=== PATIENT | female | born 1980 | race Caucasian/White ===

== ENCOUNTER 2017-11-23 12:27 | Emergency (ER) | payer OTHER ==
[2017-11-23 13:13] VITALS: BP 139/91
--- NOTE | 2017-11-23 13:29 | UC ---
Eye Complaint HPI - HPI Summary HPI Summary: Patient to urgent care today with chief complaint of redness and purulent drainage from left eye began today. Patient does not wear contact lenses patient does not have any visual disturbances patient does not have any photophobia - History of Current Complaint Chief Complaint: UCEye Stated Complaint: EYE COMPLAINT Time Seen by Provider: 11/23/17 13:10 Hx Obtained From: Patient Hx Last Menstrual Period: HAS AN IUD, NO REG PERIOD ?: No Onset/Duration: Sudden Onset, Lasting Days - 1 Timing: Constant Pain Intensity: 4 Pain Scale Used: 0-10 Numeric Location of Injury: Conjunctiva Aggravating Factor(s): Nothing Alleviating Factor(s): Nothing Associated Signs And Symptoms: Positive: Drainage (Purulent) - Allergies/Home Medications Allergies/Adverse Reactions: Allergies Allergy/AdvReac Type Severity Reaction Status Date / Time No Known Allergies Allergy Verified 11/23/17 13:14 PMH/Surg Hx/FS Hx/Imm Hx Previously Healthy: Yes - Surgical History Surgical History: None - Family History Known Family History: Positive: None - Social History Occupation: Employed Full-time Lives: With Family Alcohol Use: Occasionally Substance Use Type: None Smoking Status (MU): Heavy Every Day Tobacco Smoker Type: Cigarettes Amount Used/How Often: 1 PPD Household Exposure Type: Cigarettes Review of Systems Constitutional: Negative Skin: Negative Eyes: Drainage - left, Eye Redness - left ENT: Negative Respiratory: Negative Cardiovascular: Negative Gastrointestinal: Negative Genitourinary: Negative Motor: Negative Neurovascular: Negative Musculoskeletal: Negative Neurological: Negative Psychological: Negative Is Patient Immunocompromised?: No All Other Systems Reviewed And Are Negative: Yes Physical Exam Triage Information Reviewed: Yes Appearance: Well-Appearing, No Pain Distress, Well-Nourished Vital Signs: Initial Vital Signs Temp 97.6 F 11/23/17 13:10 Pulse 56 11/23/17 13:10 Resp 18 11/23/17 13:10 BP 139/91 11/23/17 13:10 Pulse Ox 97 11/23/17 13:10 Vital Signs Reviewed: Yes Eye Exam: Normal Eyes: Positive: Conjunctiva Clear - right, Conjunctiva Inflamed - left, Discharge - left ENT Exam: Normal ENT: Positive: Normal ENT inspection, Hearing grossly normal, TMs normal, Uvula midline. Negative: Nasal congestion, Trismus, Muffled voice, Hoarse voice, Sinus tenderness Dental Exam: Normal Neck exam: Normal Neck: Positive: Supple, Nontender Respiratory Exam: Normal Respiratory: Positive: Chest non-tender, Lungs clear, Normal breath sounds, No respiratory distress, No accessory muscle use Cardiovascular Exam: Normal Cardiovascular: Positive: RRR, No Murmur, Pulses Normal, Brisk Capillary Refill Musculoskeletal Exam: Normal Musculoskeletal: Positive: Strength Intact, ROM Intact, No Edema Neurological Exam: Normal Neurological: Positive: Alert, Muscle Tone Normal Psychological Exam: Normal Skin Exam: Normal Eye Complaint Course/Dx - Course Course Of Treatment: poltrim opthalmic for 5 days, follow with Dr. Ly if not resolved in 5 days or worsens at any time - Differential Dx/Diagnosis Provider Diagnoses: OS conjuctivitis, nicotine dependant Discharge - Sign-Out/Discharge Documenting (check all that apply): Discharge/Admit/Transfer - Discharge Plan Condition: Stable Disposition: HOME Prescriptions: Polymyx/Trimethoprim OPTH* [Polytrim OPHTH*] 1 drop LEFT EYE Q3H #1 btl Patient Education Materials: How to Use Eye Drops (ED), Conjunctivitis (ED) Referrals: Amol Ly MD [Medical Doctor] - If Needed - Billing Disposition and Condition Condition: STABLE Disposition: HOME
== END 2017-11-23 13:36 | disposition home or self-care (01) ==
LOC: UCEAST 12:27
DX: H10.32 Unspecified acute conjunctivitis, left eye (principal); F17.210 Nicotine dependence, cigarettes, uncomplicated
CPT/HCPCS: 99212; G0463